=== PATIENT | male | born 1955 ===

== ENCOUNTER → 2022-03-09 | Outpatient (CLI) | payer OTHER ==
[2022-03-09 18:14] LABS: BASOPHILS ABSOLUTE AUTO 0.02 K/mm3 (0.00-0.23); BASOPHILS PERCENT AUTO 0 % (0-2); EOSINOPHILS ABSOLUTE AUTO 0.04 K/mm3 (0.00-0.68); EOSINOPHILS PERCENT AUTO 1 % (0-6); Hematocrit 35.4 % (37.0-53.0); Hemoglobin 12.2 g/dL (13.5-17.5); IMMATURE GRAN ABSOLUTE AUTO 0.03 K/mm3 (0.00-0.10); IMMATURE GRAN PERCENT AUTO 1 % (0-1); LYMPHOCYTES ABSOLUTE AUTO 0.92 K/mm3 (0.84-5.20); LYMPHOCYTES PERCENT AUTO 15 % (21-46); MONOCYTES ABSOLUTE AUTO 0.15 K/mm3 (0.16-1.47); MONOCYTES PERCENT AUTO 2 % (4-13); Mean Corpuscular HGB 32.1 pg (26.0-34.0); Mean Corpuscular HGB Conc 34.5 g/dL (31.5-36.5); Mean Corpuscular Volume 93 fL (80-100); Mean Platelet Volume 9.5 fL (9.1-12.4); NEUTROPHILS ABSOLUTE AUTO 5.18 K/mm3 (1.96-9.15); NEUTROPHILS PERCENT AUTO 82 % (41-73); Platelet Count 411 K/mm3 (150-400); RDW Coefficient Variation 16.3 % (11.7-14.2); RDW Standard Deviation 55.3 fL (35.1-46.3); White Blood Cell Count 6.34 K/mm3 (4.00-11.30)
[2022-03-09 18:29] LABS: Albumin, Blood 3.3 g/dL (3.4-5.0); Albumin/Globulin Ratio 0.9 (0.8-1.8); Bilirubin, Total 0.4 mg/dL (0.1-1.0); Bun/Creatinine Ratio 23.4 (12.0-20.0); Calcium, Blood 9.3 mg/dL (8.5-10.1); Creatinine, Blood 0.77 mg/dL (0.60-1.20); Globulin, Blood 3.6 g/dL (2.2-4.0); Total Protein, Blood 6.9 g/dL (6.4-8.2)
== END | disposition home or self-care (01) ==
LOC: LAB 17:51 → LAB SHORT 17:51
PROVIDERS: Physician Assistant
DX: N39.0 Urinary tract infection, site not specified (principal)
CPT/HCPCS: 80053; 85025; 87077; 87086; 87186

== ENCOUNTER 2024-02-19 07:09 | Day surgery (SDC) | payer OTHER ==
[~2024-02-19] VITALS: Ht 182.9 cm; Wt 70.1 kg
[~2024-02-19 07:09] MED LIST: ASPI325EC PO; Acetaminophen325 M1 PO; Balanced Salt Epinephrine Irrigation Solution 500 mL IR SCH; Cyclobenzaprine5 MG PO; DOCU100 PO; ELIQUIS2.5 MG PO; GLUCOPHAGE1000 M2 PO; INSULIN GL100 UNIT/3 SC; JARDIANCE25 MG PO; K-Phos Origina500 MG PO; Lasix40 MG PO; Lidocaine HCl/Pf 1% 5 ML VIAL ONE; Lidocaine HCl/Pf 1% 5 ML VIAL XX SCH; Moxifloxacin HCL 0.5 MG/0.1 ML 0.4MLSYR LEFTEYE SCH; NS 500 ML IV ONE; OXYC5 PO; PHENYLEPHRINE\\TROPICAMIDE\\TETRACAINE OPHTHALMIC DILATING SOLN LEFTEYE PRN; Phenylephrine Frt 10% Opth (ORSC) ONE; Povidone-Iodine 450 DROP/30 ML Solution LEFTEYE SCH; SENN187 PO; TAMS.4ER PO; Triamcinolone Inj Susp 40 MG / ML 1ML Vial INJ SCH; Triamcinolone Inj Susp 40 MG / ML 1ML Vial ONE
[2024-02-19] MEDS ORDERED: NS 500 ML IV ONE (07:55)
--- NOTE | 2024-02-19 07:55 | NUR ---
02/19/24 0755 Radha Huff AT 0707 PLEDGET AT [phone]
[2024-02-19] MEDS ORDERED: Midazolam HCl 1MG / ML 2ML Vial ONE (08:26)
[2024-02-19] MEDS ORDERED: FentaNYL Citrate 50 MCG/ML 2 ML Injection ONE (08:26)
[2024-02-19] MEDS ORDERED: Tetracaine HCl 0.5% Opth Soln 15 ml LEFTEYE ONE (08:36)
[2024-02-19 08:51] VITALS: BP 126/85
== END 2024-02-19 09:09 | disposition home or self-care (01) ==
LOC: ORSCSDS 07:09
PROVIDERS: Ophthalmology
PROC: 08RK3JZ Replacement of Left Lens with Synthetic Substitute, Percutaneous Approach (ICD-10-PCS; principal; 2024-02-19 08:30)
DX: E11.36 Type 2 diabetes mellitus with diabetic cataract (principal); H25.813 Combined forms of age-related cataract, bilateral; H52.202 Unspecified astigmatism, left eye; Z79.4 Long term (current) use of insulin; Z79.899 Other long term (current) drug therapy
CPT/HCPCS: 82947; J2001; J2250; J3010; J3301; J7040; V2632

== ENCOUNTER 2024-03-04 08:08 | Day surgery (SDC) | payer OTHER ==
[~2024-03-04] VITALS: Ht 182.9 cm; Wt 67.1 kg
[~2024-03-04 08:08] MED LIST changes: -Lidocaine HCl/Pf 1% 5 ML VIAL ONE; -Moxifloxacin HCL 0.5 MG/0.1 ML 0.4MLSYR LEFTEYE SCH; +Moxifloxacin HCL 0.5 MG/0.1 ML 0.4MLSYR RIGHTEYE SCH; -PHENYLEPHRINE\\TROPICAMIDE\\TETRACAINE OPHTHALMIC DILATING SOLN LEFTEYE PRN; +PHENYLEPHRINE\\TROPICAMIDE\\TETRACAINE OPHTHALMIC DILATING SOLN RIGHTEYE PRN; -Phenylephrine Frt 10% Opth (ORSC) ONE; -Povidone-Iodine 450 DROP/30 ML Solution LEFTEYE SCH; +Povidone-Iodine 450 DROP/30 ML Solution RIGHTEYE SCH
[2024-03-04] MEDS ORDERED: JARDIANCE25 MG PO (08:36)
[2024-03-04] MEDS ORDERED: NARCAN4 M1 NS (08:37)
--- NOTE | 2024-03-04 08:42 | NUR ---
03/04/24 0833 Radha Huff 0836 PLEDGET AT [id number]
[2024-03-04] MEDS ORDERED: NS 500 ML IV ONE (08:46)
[2024-03-04] MEDS ORDERED: Midazolam HCl 1MG / ML 2ML Vial ONE (08:57)
[2024-03-04] MEDS ORDERED: FentaNYL Citrate 50 MCG/ML 2 ML Injection ONE (08:57)
[2024-03-04] MEDS ORDERED: Tetracaine HCl 0.5% Opth Soln 15 ml RIGHTEYE ONE (09:39)
[2024-03-04 09:54] VITALS: BP 118/81
== END 2024-03-04 10:07 | disposition home or self-care (01) ==
LOC: ORSCSDS 08:08
PROVIDERS: Ophthalmology
PROC: 08RJ3JZ Replacement of Right Lens with Synthetic Substitute, Percutaneous Approach (ICD-10-PCS; principal; 2024-03-04 09:30)
DX: E11.36 Type 2 diabetes mellitus with diabetic cataract (principal); H25.811 Combined forms of age-related cataract, right eye; Z96.1 Presence of intraocular lens; Z85.05 Personal history of malignant neoplasm of liver; Z79.4 Long term (current) use of insulin; Z79.85 Long-term (current) use of injectable non-insulin antidiabetic drugs; Z79.899 Other long term (current) drug therapy
CPT/HCPCS: 82947; J2250; J3010; J3301; J7040; V2632